=== PATIENT | male | born 1995 | race Caucasian/White ===

== ENCOUNTER 2016-06-15 14:18 | Emergency (ER) | payer OTHER ==
[~2016-06-15] VITALS: Ht 185.4 cm; Wt 110.7 kg
[2016-06-15 17:17] VITALS: BP 148/68
== END 2016-06-15 17:15 | disposition home or self-care (01) ==
LOC: ED 14:18
DX: S39.012A Strain of muscle, fascia and tendon of lower back, initial encounter (principal); X50.0XXA Overexertion from strenuous movement or load, initial encounter; X50.9XXA Other and unspecified overexertion or strenuous movements or postures, initial encounter; Y93.89 Activity, other specified; Y99.8 Other external cause status; Y92.89 Other specified places as the place of occurrence of the external cause
CPT/HCPCS: J1885